=== PATIENT | male | born 1975 | race Caucasian/White ===

== ENCOUNTER 2020-11-13 10:50 | Emergency (ER) | payer SELFPAY ==
[2020-11-13 10:52] VITALS: BP 142/80; PULSE 113; RESP 16; TEMP 36.2; O2SAT 98; BMI 27.6
[2020-11-13 11:30] VITALS: BP 118/80; PULSE 105; O2SAT 96
[2020-11-13 11:30] LABS: Basophils # 0.1 10^3/uL (0.0-0.1); Basophils % 0.7 %; Eosinophils # 0.1 10^3/uL (0.0-0.8); Eosinophils % 0.9 %; Hematocrit 48.2 % (42.0-52.0); Hemoglobin 15.2 g/dL (11.7-16.6); Lymphocytes # 1.4 10^3/uL (0.8-4.8); Lymphocytes % 11.4 %; Mean Corpuscular HGB Conc 31.5 g/dL (30.0-36.0); Mean Corpuscular Volume 76.1 fL (80-94); Mean Platelet Volume 10.1 fL (7.4-10.4); Neutrophils # 9.44 10^3/uL (1.8-7.7); Neutrophils % 78.3 %; Nucleated Red Blood Cells % 0 %; Platelet Count 247 10^3/cmm (130-400); Red Blood Count 6.33 10^6/uL (4.1-5.3); Red Cell Distribution Width 15.1 % (12.1-15.1); White Blood Count 12.1 10^3/uL (4.0-10.0)
[2020-11-13] MEDS: ampicillin-sulbactam 3 GM in sodium chloride 0.9% (plus) 50 ML IV (11:31)
[2020-11-13] MEDS: dexamethasone 10 mg/mL INJ IVP (11:31)
[2020-11-13 11:33] VITALS: O2SAT 96
--- NOTE | 2020-11-13 11:35 | PC.NURSE ---
pt has significant swelling to tonsillar area. pt voice hoarse. pt oxygenation within normal limits
[2020-11-13 11:47] LABS: Anion Gap 15.4 (5-19); Blood Urea Nitrogen 15 mg/dL (6-20); Calcium 9.6 mg/dL (8.5-10.5); Carbon Dioxide 24 mmol/L (22-29); Chloride 101 mmol/L (98-107); Glomerular Filtration Rate 123.1 mL/min (90-130); Glucose 113 mg/dL (65-115); Osmolality Calculated 284 mOsm/kg (285-295); Potassium 4.4 mmol/L (3.5-5.1); Sodium 136 mmol/L (136-145)
--- NOTE | 2020-11-13 12:02 | ED_ITS ---
HPI - URI/Sore Throat General: Chief Complaint: Upper Respiratory Infection Stated Complaint: Pain throat trouble swallowing/ SOB Time Seen by Provider: 11/13/20 10:54 Source: patient and old records reviewed History of Present Illness: HPI Narrative: Patient presents with complaint of a sore throat for about a week. He feels like his right side is a little bit worse than his left he is had no fevers he has been around other family members that have been with some upper respiratory he denies any loss of taste or smell or Covid symptoms or shortness of breath or headache. He does not may be should finally get this checked out. He is an occasional smoker it is painful to swallow but he denies any difficulty controlling his secretions or eating or drinking MD elicited complaint: sore throat Review of Systems Narrative: General: denies fatigue, fever or chills HEENT: denies ear pain, denies nasal congestion, denies vision changes, see HPI Neck: denies masses or pain Resp: denies cough, denies shortness of breath, denies pleuritic pain Cardio: denies chest pain, denies edema GI: denies abdominal pain, denies N/V/D, denies black/tarry or bloody stools : denies hematuria, denies dysuria Neuro: denies headache, denies dizziness, denies motor or sensory changes Musculoskeletal: denies pain, denies swelling Skin: denies rashes Psych: denies SI or HI Endocrine: denies thyroid symptoms, denies lymphadenopathy all over ROS reviewed and patient denies Physical Exam Narrative: EXAM NARRATIVE: General: a/o/3, no distress Head: atraumatic HEENT: normal eyes, normal conjunctiva, normal hearing, normal external nose, patient has bilateral pharyngeal erythema in the right side seems more prominent and it is more diffuse in the pillars then it is truly on the tonsil uvula has some mild edema does have a little bit of a muffled potato voice but he is very talkative in no distress no stridor no visible abscess seen Neck: FROM, trachea midline Mildly tender but no prominent masses no trismus very talkative easily opens up his mouth Chest: normal expansion, no gross deformities Resp: normal speech, no retractions, no accessory muscle use, CTA bilaterally Cardio: regular rate and rhythm and no murmur, no peripheral edema, normal peripheral pulses GI: soft, flat non tender, no guarding normal BS : deferred Musculoskeletal: FROM, no pain or gross deformities Neuro: a/o appropriate for age, no gross motor or sensory deficitys, CN II-XII grossly intact, normal coordination, normal speech Skin: no rashes Psych: cooperative, normal mood and effect Course Vital Signs: Vital signs: Vital Signs Temperature 97.2 F L 11/13/20 10:52 Pulse Rate 105 H 11/13/20 11:30 Respiratory Rate 16 11/13/20 10:52 Blood Pressure 118/80 11/13/20 11:30 Pulse Oximetry 96 11/13/20 11:33 MDM - URI/Sore Throat MDM Narrative: Medical decision making narrative: Patient is very talkative O2 sats are stable he is in no distress. Discussed with him and his possibility of a peritonsillar abscess does not seem in any distress for this to be any type of retropharyngeal abscess Discussed with them it is more full on the right but he seems to be edematous bilaterally although he denies pain on the left discussed with him the concerns of peritonsillar abscess we could CT him I really prefer not to do a CT scan of the really no need to discuss with him trying to do a needle aspiration to determine if there is pus or drainage he does not really want that done at this time he states he right like to just try antibiotics. I discussed with him we do not have ENT available this weekend and that I would recommend he go to [place] for evaluation whether today and be seen up in the ER or arrange some follow-up patient says he like to try antibiotics for 2 days he is not driving to [place] today. Discussed with patient and his the risks of airway compromise and that if abscess were to get worse then he can require intubation and/or lead to airway compromise and/or they both feel comfortable trying antibiotics at this time they feel he has been stable he is e xtremely talkative does not appear to be in distress or any pain. I will place him on some Unasyn IV and some dexamethasone IV discussed with him he has to have very low tolerance to return to the emergency department and the longer he waits the higher risk of airway compromise leading to intubation and/or crich, To check on the patient he was asleep in fact he was snoring and his sats were 98% no signs of airway compromise his pulse and improved to 105. I did find out that our ENT is front end ui developer on Sunday should the patient get worse we can instruct him to return the emergency department and/or follow-up whether he would need any drainage. Patient is again were instructed the risks of airway compromise is very important that he get his medication filled and start his antibiotics today get 2 more doses and will put him on Augmentin Lab Data: Attestation: I reviewed the patient's lab results. Labs: Lab Results 11/13/20 11/13/20 Range/Units 11:11 11:11 WBC 12.1 H (4.0-10.0) 10^3/ uL RBC 6.33 H (4.1-5.3) 10^6/u L Hgb 15.2 (11.7-16.6) g/dL Hct 48.2 (42.0-52.0) % MCV 76.1 L (80-94) fL MCH 24.0 L (28.0-34.0) pg MCHC 31.5 (30.0-36.0) g/dL RDW 15.1 (12.1-15.1) % Plt Count 247 (130-400) 10^3/c mm MPV 10.1 (7.4-10.4) fL Neut % (Auto) 78.3 % Lymph % (Auto) 11.4 % [place] % (Auto) 8.0 % Eos % (Auto) 0.9 % Baso % (Auto) 0.7 % Neut # (Auto) 9.44 H (1.8-7.7) 10^3/u L Lymph # (Auto) 1.4 (0.8-4.8) 10^3/u L [place] # (Auto) 1.0 H (0.2-0.9) 10^3/u L Eos # (Auto) 0.1 (0.0-0.8) 10^3/u L Baso # (Auto) 0.1 (0.0-0.1) 10^3/u L Nucleated RBC % (a uto) 0 % Nucleated RBCs # 0.0 /100WBC Sodium 136 (136-145) mmol/L Potassium 4.4 (3.5-5.1) mmol/L Chloride 101 (98-107) mmol/L Carbon Dioxide 24 (22-29) mmol/L Anion Gap 15.4 (5-19) BUN 15 (6-20) mg/dL Creatinine 0.7 (0.7-1.2) mg/dL GFR Calculation 123.1 (90-130) mL/min Glucose 113 (65-115) mg/dL Calculated Osmolal ity 284 L (285-295) mOsm/k g Calcium 9.6 (8.5-10.5) mg/dL Discharge Plan Discharge Patient Disposition: Home Clinical Impression: Acute tonsillitis, Abscess, peritonsillar Condition: Stable Prescriptions: New Augmentin 875-125 mg tablet 1 tab PO Q12H Qty: 20 RF: 0 methylprednisolone [Medrol] 8 mg tablet 8 mg PO DAILY Qty: 3 RF: 0 Discharge Orders: Discharge ED (Routine); Ordered 11/13/20 Ordered By: Melanie Robles Referrals: Jason Kelley MD [Physician] - (peritonsillar abscess) Discharge Diet: Usual diet Discharge Activity: Resume usual activity Patient Instructions: Peritonsillar Abscess (ED), Tonsillitis - Adult Activity Restrictions/Additional Instructions: Get your prescription filled today you may try the [facility] at [facility] it should be about $25 but make sure you get both pills in today you are also prescribed a steroid pill that may help with the swelling you can take that later tonight if you want to be Profen or Tylenol for pain You may be at risk of compromising her airway and shutting off your airway which could lead to respiratory distress respiratory failure which could result in being on a respirator a emergent surgical airway and/or so have low tolerance return to the emergency department if you notice any type of increased swelling or difficulty breathing. If you get worse she can return to the emergency department at any time. But ear nose and throat will be available on Sunday for you to call for follow-up of her again in the meantime if you notice anything changes worsening or different please report to the emergency room as soon as possible. Thank you for choosing [facility] for your healthcare needs today. Please realize this is an emergency room and that we are providing you with a medical screening exam and this may not be complete and all inclusive of all the testing and or work up that you may need to determine your ailment or severity of your illness. It is very important that you follow up as instructed or that you return to the Emergency Department should you have concerns or if your condition changes or worsens in any way. Coding Level of Care Code ED [employer] for [facility]
[2020-11-13 13:21] VITALS: BP 133/83; PULSE 107; O2SAT 95
== END 2020-11-13 13:21 | disposition home or self-care (01) ==
PROVIDERS: Emergency Provider Emergency Medicine
DX: J03.90 Acute tonsillitis, unspecified (principal); J36 Peritonsillar abscess
CPT/HCPCS: 80048; 85025; 96365; 96375; 99284; J0295; J1100

== ENCOUNTER → 2021-03-29 11:51 | Outpatient (BNVA) | payer SELFPAY | PROVIDERS: Visit Provider Nurse Practitioner Family | DX: Z20.822 Contact with and (suspected) exposure to COVID-19 (principal); J06.9 Acute upper respiratory infection, unspecified | CPT/HCPCS: 87426 ==